=== PATIENT | female | born 1980 | race Caucasian/White ===

== ENCOUNTER 2018-10-18 11:37 | Emergency (ER) | payer OTHER ==
[~2018-10-18] VITALS: Ht 154.9 cm; Wt 57.2 kg
[2018-10-18 11:56] VITALS: BP 118/68
--- NOTE | 2018-10-18 12:03 | NUR ---
PT SENT TO LOBBY TO WAIT FOR AVAILABLE BED.
[2018-10-18 12:25] LABS: BASOPHILS % (AUTO) 0.2 % (0.0-2.0); EOSINOPHILS # (AUTO) 0.1 K/uL (0-0.4); EOSINOPHILS % (AUTO) 1.8 % (0.0-4.0); HEMOGLOBIN 13.2 g/dL (12.0-16.0); LYMPHOCYTES # (AUTO) 0.7 K/uL (2.5-16.5); LYMPHOCYTES % (AUTO) 13.4 % (20.5-51.1); MEAN CORPUSCULAR HEMOGLOBIN 28 pg (27-31); MEAN CORPUSCULAR HGB CONC 34 g/dL (33-37); MEAN CORPUSCULAR VOLUME 82.2 fL (80-94); MONOCYTES # (AUTO) 0.6 K/uL (0.8-1.0); MONOCYTES % (AUTO) 11.7 % (1.7-9.3); NEUTROPHILS # (AUTO) 3.6 K/uL (1.8-7.7); NEUTROPHILS % (AUTO) 72.9 % (42.2-75.2); PLATELET COUNT (AUTO) 262 K/uL (140-450); RED BLOOD CELL COUNT(AUTO) 4.74 MIL/uL (4.20-5.40); RED CELL DISTRIBUTION WIDTH 14.3 % (11.6-13.7); WHITE BLOOD COUNT (AUTO) 4.9 K/uL (4.8-10.8)
[2018-10-18 12:36] LABS: ANION GAP 13.4 (8-16); CARBON DIOXIDE 25.4 mmol/L (21-32); CREATININE 0.6 mg/dL (0.6-1.3); POTASSIUM 3.8 mmol/L (3.5-5.1)
[2018-10-18 12:42] LABS: ALBUMIN 3.8 g/dL (3.4-5.0); TOTAL BILIRUBIN 0.4 mg/dL (0.0-1.0)
--- NOTE | 2018-10-18 15:07 | NUR ---
PT BROUGHT BACK FROM US. VITALS RECHECKED. VSS. PT SENT BACK TO LOBBY TO WAIT FOR ER BED. WITH PATIENT. PT AMBULATORY WITH STEADY GAIT.
--- NOTE | 2018-10-18 15:20 | NUR ---
PT AMBULATED TO BED 11.
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
--- NOTE | 2018-10-18 16:30 | NUR ---
Patient being evaluated by DR. PINTO at bedside.
[2018-10-18 16:47] VITALS: BP 129/83
== END 2018-10-18 16:47 | disposition home or self-care (01) ==
LOC: MED 11:37
DX: O03.9 Complete or unspecified spontaneous abortion without complication (principal); Z3A.09 9 weeks gestation of pregnancy
CPT/HCPCS: 36415; 76801; 80053; 84702; 85025; 86900; 86901; 99284; Q0092